=== PATIENT | male | born 1970 | race African-American/Black ===

== ENCOUNTER 2022-04-26 03:23 | Emergency (ER) | payer MEDICAID ==
[~2022-04-26] VITALS: Ht 180.3 cm; Wt 97.5 kg
[2022-04-26 03:32] VITALS: BP 151/89
[2022-04-26] MEDS ORDERED: IBUP-1957 PO (04:39)
[2022-04-26] MEDS ORDERED: IBUPROFEN 600 MG TABLET ONE (04:44)
[2022-04-26] MEDS ORDERED: IBUPROFEN 600 MG TABLET PO ONE (05:00)
== END 2022-04-26 04:52 | disposition home or self-care (01) ==
LOC: ER 03:45
DX: S52.92XA Unspecified fracture of left forearm, initial encounter for closed fracture (principal); Z59.00 Homelessness unspecified; X58.XXXA Exposure to other specified factors, initial encounter; Y93.89 Activity, other specified; Y92.89 Other specified places as the place of occurrence of the external cause; Y99.8 Other external cause status